=== PATIENT | female | born 1985 | race Two or more races ===

== ENCOUNTER 2024-04-11 07:35 | Emergency (ER) | payer OTHER ==
[~2024-04-11] VITALS: Ht 157.5 cm; Wt 47.6 kg
[2024-04-11] MEDS ORDERED: DEXAMETHASONE SODIUM PHOSPHATE 4 MG/ML VIAL IM STA (09:13)
[2024-04-11] MEDS ORDERED: ORPHENADRINE CITRATE 30 MG/ML AMPUL IM STA (09:13)
== END 2024-04-11 11:10 | disposition home or self-care (01) ==
LOC: ER 07:38
DX: G44.209 Tension-type headache, unspecified, not intractable (principal); Z88.6 Allergy status to analgesic agent; Z91.013 Allergy to seafood

== ENCOUNTER → 2024-07-31 | Emergency (ER) | payer OTHER ==
[~2024-07-31] VITALS: Ht 160 cm; Wt 52.6 kg
[~2024-07-31] MED LIST: ACETAMINOPHEN 500 MG GEL..CAP PO ONE; ACETAMINOPHEN 80 MG/SUPP.RECT SUPP.RECT RECTAL STA; DEXAMETHASONE SODIUM PHOSPHATE 4 MG/ML VIAL IM STA; DEXAMETHASONE SODIUM PHOSPHATE 4 MG/ML VIAL ONE
== END | disposition home or self-care (01) ==
LOC: ER 10:30
DX: M94.0 Chondrocostal junction syndrome [Tietze] (principal); Z88.6 Allergy status to analgesic agent; Z91.013 Allergy to seafood; Z91.018 Allergy to other foods